=== PATIENT | female | born 1995 | race Caucasian/White ===

== ENCOUNTER 2022-03-25 08:15 | Outpatient (CLI) | payer BC, SELFPAY ==
[2022-03-25 14:15] LABS: Chloride* 103 mmol/L (96-114); Potassium* 4.5 mmol/L (3.6-5.1); Sodium* 137 mmol/L (135-149)
[2022-03-25 14:18] LABS: Carbon Dioxide* 24 mmol/L (20-32); Creatinine* 0.7 mg/dL (0.5-1.5); Estimated Glomerular Filt Rate 123 ml/min
[2022-03-25 14:19] LABS: Blood Urea Nitrogen* 18 mg/dL (5-24); Calcium* 9.4 mg/dL (8.4-10.6); Glucose* 96 mg/dL (60-115)
[2022-03-25 16:09] LABS: Albumin* 4.4 g/dL (3.3-5.0)
[2022-03-25 16:12] LABS: Alkaline Phosphatase* 69 U/L (40-150); Aspartate Amino Transferase* 23 U/L (12-35); Bilirubin Direct* 0.2 mg/dL (0.0-0.5); Bilirubin Total* 0.5 mg/dL (0.1-1.5); Total Protein* 7.1 g/dL (6.0-8.3)
[2022-03-25 16:13] LABS: Alanine Aminotransferase* 20 U/L (4-35)
== END 2022-03-25 08:16 | disposition home or self-care (01) ==
PROVIDERS: Visit Provider Dermatology
DX: L73.2 Hidradenitis suppurativa (principal); Z79.899 Other long term (current) drug therapy
CPT/HCPCS: 80048; 80076

== ENCOUNTER 2022-04-23 19:31 | Outpatient (CLI) | payer BC, OTHER, SELFPAY ==
--- NOTE | 2022-05-13 12:42 | P.SLS_ITS ---
Sleep Study Details Details Interpreting Provider: Jean Paul Mason MD Date of Sleep Study: 04/23/22 Sleep Study Details: STUDY TYPE:? Home ? BMI:? Not recorded ORDERING PROVIDER:? Renee INDICATION:? Concerns about sleep apnea ? SLEEP SUMMARY:? 535 monitored minutes RESPIRATORY SUMMARY:? AHI is 6.3 with minimal positional variation. Low oxygen was 91 Snoring 4.7% PERIODIC LIMB MOVEMENTS OF SLEEP:? Not recorded CARDIAC:? 45-107, mean 61 IMPRESSION:? Mild obstructive sleep apnea RECOMMENDATION: Treatment options include AutoSet CPAP at 4-17, dental applian ce and/or airway expansion surgery.
== END 2022-04-23 19:32 | disposition home or self-care (01) ==
PROVIDERS: Visit Provider Otolaryngology
DX: G47.33 Obstructive sleep apnea (adult) (pediatric) (principal)
CPT/HCPCS: 95806

== ENCOUNTER 2022-08-15 09:52 | Day surgery (SDC) | payer OTHER, SELFPAY ==
[2022-08-15] VITALS (15 sets, daily range): BP systolic 108–143; BP diastolic 45–100; PULSE 68–118; RESP 12–20; TEMP 36.4–36.6; O2SAT 96–100; BMI 29.8
[2022-08-15] MEDS: LACTATED RINGERS 1000 ML 1,000 ML 100 ML IV (10:35)
[2022-08-15] MEDS: SODIUM CHLORIDE 0.9 % (FLUSH) 10 ML SYRINGE IVF (10:35)
[2022-08-15] MEDS: OXYMETAZOLINE 0.05% NASAL SPRAY 2 SPRAY NOSTRIL-B (10:59)
[2022-08-15] MEDS: BUPIVACAINE 0.5%/EPINEPHRINE 0.9 MG (30.9 ML) INJECTION (12:20)
[2022-08-15] MEDS: HYDROmorphone 0.5 mg/0.5 ml inj IVP (13:08)
--- NOTE | 2022-08-15 13:10 | W.ANESCHARGE ---
Anesthesia Charges Start Date/Time Anesthesia Start Date: 08/15/22 Anesthesia Start Time: 11:59 Stop Date/Time Anesthesia Stop Date: 08/15/22 Anesthesia Stop Time: 13:06 Summary Emergency: No
[2022-08-15] MEDS: fentaNYL 100 MCG/2 ML inj 50 MCG IVP (13:19)
[2022-08-15] MEDS: ACETAMINOPHEN 160 MG/5 ML CUP 320 MG PO (15:00)
[2022-08-15] MEDS: OXYCODONE 1 MG/ML ORAL SOLN 5 MG PO (15:00)
[2022-08-16 08:32] LABS: HCG Qualitative* Negative (Negative)
--- NOTE | 2022-08-19 09:13 | P.ENTPROC_ITS ---
Procedure Note Date of procedure: 08/15/22 Procedure: Preop diagnosis chronic tonsillitis adenotonsillar hypertrophy, deviated septum, inferior turbinate hypertrophy, nasal obstruction Postoperative diagnosis same Procedure adenotonsillectomy, septoplasty, submucous partial resection inferior turbinates Under general endotracheal anesthesia patient was prepped and draped in usual fashion. The McIvor mouth gag was inserted the tongue retracted forward. The right and left tonsil were removed with a combination of needlepoint and Coblation cautery. No submucous cleft was noted. The adenoid pad was visualized with a laryngeal mirror and removed with suction cautery. After regarding and gloving attention was turned to the nose. The nose was injected and decongested. A right hemitransfixion incision was made left anterior and posterior tunnels were created. A vertical incision was made to the cartilage and a right posterior tunnel created. The posterior deflected portions of septal bone were resected and a large piece was trimmed and returned to intraseptal space. The anterior septum was moved to midline. The hemitransfixion was closed with 2 4-0 chromic sutures and silastic stents secured with 3-0 nylon. A stab incision was made in the anterior of the right inferior turbinate a t unnel created with a [place] dissector. A conservative anterior submucous resection was performed. The Coblation was used to cauterize more intramurally more posteriorly along the inferior 10%. This was repeated on the left side in identical fashion. Merocel packing was trimmed and placed in the nose on each side. The patient procedure well was taken recovery in satisfactory condition. Blood loss during procedure was less than 50 mL Surgeon: Jean Paul Mason MD
== END 2022-08-15 16:06 | disposition home or self-care (01) ==
PROVIDERS: Visit Provider Otolaryngology
PROC: (CPT 42821; principal; 2022-08-15 11:30)
DX: J35.01 Chronic tonsillitis (principal); J35.3 Hypertrophy of tonsils with hypertrophy of adenoids; J34.2 Deviated nasal septum; J34.3 Hypertrophy of nasal turbinates
CPT/HCPCS: 42821; 30520; 30140; 00170; 84703; 88304; A9270; J0330; J1100; J1170; J2250; J2405; J2704; J3010; J7120

== ENCOUNTER 2022-08-22 14:32 | Emergency (ER) | payer OTHER, SELFPAY ==
[2022-08-22 14:43] VITALS: BP 127/68; PULSE 88; RESP 20; TEMP 36.6; O2SAT 97; BMI 29.8
--- NOTE | 2022-08-22 14:53 | ED_ITS ---
HPI - General Adult General Time Seen by Provider: 14:53 Date Seen: 08/22/22 Chief complaint: Post Op Complication Stated complaint: Not drinking water Time Seen by Provider: 08/22/22 14:53 Source: patient, family, RN notes reviewed and old records reviewed Mode of arrival: ambulatory Limitations: no limitations History of Present Illness HPI narrative: Patient is a very pleasant 27-year-old female who is postop day 7 from tonsillectomy and repair of deviated nasal septum by Dr. Mason who comes to the emergency room requesting fluids. Patient noted no complications from her ENT surgery on August 15. She did attend her follow-up with ENT on August 19 at which time she was told to increase her fluids. She has not had a lot of p.o. intake as she states it hurts to swallow. She has been using Tylenol and ibuprofen alternating every 4-6 hours. Last evening she did increase oxycodone dosing to 7.5 mg q.4 hours. Her last oxycodone was at approximately 1400 hours or 1 hour ago and she states her pain is at a 2 at this time. She notes no unusual cough or chills and denies any abdominal pain. She has had minimal stooling but did have small bowel movement earlier today. She is not currently on a stool softener. Again, denies any fever or chills. States that she spoke with ENT office and she was directed to come in. Related Data Home Medications Medication Instructions Recorded Confirmed adalimumab 80 mg/0.8 mL 80 mg subcut DIRECTED 03/25/22 08/19/22 subcutaneous pen kit levonorgestrel 21 mcg/24 hours (8 intrauterine 08/13/22 08/19/22 yrs) 52 mg intrauterine device (Mirena) Previous Rx's Medication Instructions Recorded methotrexate sodium 2.5 mg tablet 2.5 mg PO QWEEK #32 tabs 03/25/22 cephalexin 500 mg capsule 500 mg PO TID #18 caps 08/15/22 ondansetron 4 mg disintegrating 4 mg PO Q8H #15 tabs 08/15/22 tablet oxycodone 5 mg/5 mL oral solution 7.5 mg (7.5 mL) PO Q4-6H PRN pain 08/21/22 #200 mL Allergies Allergy/AdvReac Type Severity Reaction Status Date / Time No Known Allergies Allergy Unknown Verified 08/22/22 14:43 Review of Systems Status of ROS: Reports: 6 or more systems reviewed and unremarkable except as noted in History and below Const: Denies: fever or chills ENMT: Reports: throat pain and other (Left ear pain); Denies: neck pain Cardio: Denies: chest pain or shortness of breath with exertion Resp: Denies: shortness of breath, cough or wheezing GI: Denies: abdominal pain, nausea or vomiting Musculo: Denies: neck pain Allergy/Immuno: Denies: wheezing PFSH PFSH Social History Smoking Status: Never smoker How often do you have a drink containing alcohol: 2-4 times a month How many standard drinks containing alcohol do you have on a typical day: 1 or 2 How often do you have six or more drinks on one occasion: Never AUDIT-C Alcohol total score: 2 Non-prescribed substance use: denies use Caffeine: Yes service: No Exam Narrative: Exam Narrative: Patient is alert and oriented. Nontoxic in appearance. Lying comfortably on the gurney in room 5. She is speaking to both myself and of family member who is present without any difficulty. Normal voice. Eyes are clear. Oral cavity with moist mucous membranes. Neck is supple with no significant discomfort. TMs bilaterally without erythema or bulging. There is perhaps a slight amount of fluid behind the TM on the left. Heart with regular rate and rhythm and lungs are clear bilaterally. Abdomen soft nontender. Moving all extremities. Const: Vital Signs, click to edit/add: Vital Signs - 24 hr 08/22/22 14:43 Temperature 97.9 F Pulse Rate [Pulse Oximeter] 88 Respiratory Rate 20 Blood Pressure [Ri ght Upper Arm] 127/68 Pulse Oximetry 97 Oxygen Delivery Me thod Room Air Documenting provider has reviewed patient's vital signs: yes Course Course Hospital Course: Patient does not have the appearance or vital signs supporting dehydration but certainly does describe decreased p.o. intake including fluids. She has had 2 episodes of urination today. Will check a basic panel as well as urinalysis for ketones. Will place an IV and give 2 L normal saline. Do not feel the need to give any pain medications at this time. Reevaluation(s) Reevaluation #1: Shared with patient that her electrolyte panel looks good. She received 2 L of normal saline and has been able to eat and drink while here. Vital Signs Vital signs: Initial Vital Signs Temperature 97.9 F 08/22/22 14:43 Temperature Source Temporal Artery Scan 08/22/22 14:43 Pulse Rate 88 08/22/22 14:43 Pulse Rhythm 08/22/22 14:43 Respiratory Rate 20 08/22/22 14:43 Blood Pressure 127/68 08/22/22 14:43 Blood Pressure Mean 87 08/22/22 14:43 Blood Pressure Position Supine 08/22/22 14:43 Pulse Oximetry 97 08/22/22 14:43 Oxygen Delivery Method 08/22/22 14:43 Vital Signs Temperature 97.9 F 08/22/22 14:43 Pulse Rate 88 08/22/22 14:43 Respiratory Rate 20 08/22/22 14:43 Blood Pressure 127/68 08/22/22 14:43 Pulse Oximetry 97 08/22/22 14:43 Oxygen Delivery Method 08/22/22 14:43 Temperature 97.9 F 08/22/22 14:43 Pulse Rate 88 08/22/22 14:43 Respiratory Rate 20 08/22/22 14:43 Blood Pressure 127/68 08/22/22 14:43 Pulse Oximetry 97 08/22/22 14:43 Oxygen Delivery Method 08/22/22 14:43 Medical Decision Making MDM Narrative Medical decision making narrative: 1. Postop TNA, deviated septum -examination reassuring. No evidence of bleeding. Pain controlled 2. Decreased fluid intake-2 L normal saline given. Patient able to eat and drink well here. Recommend trying to eat approximately 45 minutes to an hour after using oxycodone. 3. Disposition-home at this time. Return for worsening symptoms and as needed. Medical Records Medical records reviewed: Yes I reviewed the patient's medical records Lab Data Lab results reviewed: Yes I reviewed the patient's lab results Labs: Lab Results 08/22/22 Range/Units 15:04 Sodium 139 (135-149) mmol/L Potassium 3.7 (3.6-5.1) mmol/L Chloride 103 (96-114) mmol/L Carbon Dioxide 27 (20-32) mmol/L BUN 9 (5-24) mg/dL Creatinine 0.6 (0.5-1.5) mg/dL Estimated Creat Clear 112.38 Estimated GFR 127 ml/min Glucose 122 H (60-115) mg/dL Calcium 9.5 (8.4-10.6) mg/dL Discharge Plan Discharge Clinical Impression: Post-operative pain Patient Disposition: Home, Self-Care Condition: Improved Additional Instructions: Push foods and fluids as much as possible. Follow-up as needed Prescriptions: No Action adalimumab 80 mg/0.8 mL pen injector kit 80 mg subcut DIRECTED Rx Instructions: Inject 80mg (1 pen) every 14 days methotrexate sodium 2.5 mg tablet 2.5 mg PO QWEEK Qty: 32 1RF Rx Instructions: Take 8 tablets weekly, may take 4 tablets one day and then take 4 tablets the next day is patient wishes to. Mirena 20 mcg/24 hours (8 yrs) 52 mg intrauterine device intrauterine cephalexin 500 mg capsule 500 mg PO TID Qty: 18 0RF ondansetron 4 mg tablet,disintegrating 4 mg PO Q8H Qty: 15 0RF oxycodone 5 mg/5 mL solution 7.5 mg PO Q4-6H PRN (Reason: pain) Qty: 200 0RF Follow Up/Referrals: Provider,Not a Local [Primary Care Provider] - Stand Alone Forms: [facility] Info Instructions
[2022-08-22] MEDS: 0.9 % SODIUM CHLORIDE 1000 ml 1,000 ML IV ×2 (15:25→16:00)
[2022-08-22 15:42] LABS: Chloride* 103 mmol/L (96-114)
[2022-08-22 15:43] LABS: Potassium* 3.7 mmol/L (3.6-5.1); Sodium* 139 mmol/L (135-149)
[2022-08-22 15:45] LABS: Creatinine* 0.6 mg/dL (0.5-1.5); Est. Creatinine Clearance* 112.38; Estimated Glomerular Filt Rate 127 ml/min
[2022-08-22 15:46] LABS: Blood Urea Nitrogen* 9 mg/dL (5-24); Calcium* 9.5 mg/dL (8.4-10.6); Carbon Dioxide* 27 mmol/L (20-32); Glucose* 122 mg/dL (60-115)
[2022-08-22 17:11] LABS: Appearance Urine Slightly Cloudy (Clear); Bilirubin Urine Negative (Negative); Blood Urine Negative (Negative); Color Urine Yellow (Yellow); Glucose Urine Negative (Negative); Ketones Urine Trace (Negative); Leukocyte Esterase Urine Negative (Negative); Nitrite Urine Negative (Negative); Protein Urine Negative (Negative); Specific Gravity Urine <= 1.005 (1.000-1.030); Urobilinogen Urine 0.2 (0.2-1.0)
[2022-08-22 17:40] LABS: Bacteria Urine Few; RBC Urine 0-2 (0-2); Squamous Epithelial Cell Urine Few (None-Few); WBC Urine 0-2 (0-5)
== END 2022-08-22 16:46 | disposition home or self-care (01) ==
PROVIDERS: Emergency Provider Family Medicine
DX: G89.18 Other acute postprocedural pain (principal); E86.0 Dehydration
CPT/HCPCS: 36415; 80048; 81003; 81015; 87086; 99283; 99284; J7030